=== PATIENT | male | born 2005 | race Caucasian/White ===

== ENCOUNTER 2023-04-21 20:18 | Emergency (ER) | payer OTHER ==
[~2023-04-21] VITALS: Ht 180.3 cm; Wt 113.4 kg
== END 2023-04-21 21:51 | disposition home or self-care (01) ==
LOC: ED 20:18
DX: M54.2 Cervicalgia (principal); M25.551 Pain in right hip; M53.3 Sacrococcygeal disorders, not elsewhere classified